=== PATIENT | male | born 1955 | race Caucasian/White ===

== ENCOUNTER 2016-10-06 07:23 | Day surgery (SDC) | payer BC ==
[~2016-10-06] VITALS: Ht 180.3 cm; Wt 92.9 kg
[2016-10-06] VITALS (17 sets, daily range): BP systolic 130–179; BP diastolic 64–93; PULSE 59–69; RESP 10–17; TEMP 97.1–98.6; O2SAT 94–99; Ht 180.3 cm; Wt 92.9 kg
[~2016-10-06 07:23] MED LIST: CITA20TA17 PO; LIDOCAINE 1% (10mg/ml) 2ml SDV INJ ONE; LIDOCAINE 1%/EPI 1:100,000 20ml MDV ONE; LR 1,000 ML IV SCH; NEBI5TAB8 PO
--- OUTSIDE RECORDS SUMMARY | 2016-10-06 07:28 | XMS REPORT | Continuity of Care Document ---
Author Author Imani ÁLVAREZ, Eitan AGGARWAL W Organization Ambulatory Address [address] [place] [address] [place] [address] Phone Care Team Providers Care Ranger Aide Name Role Phone Eitan Diallo PP Unavailable Payers Payer name Insurance type Covered republican ID Authorization(s) Unknown Problems Condition Effective Dates (start - stop) Clinical Status Conjunctival hemorrhage - *Acute Chronic lymphoid leukemia - *Chronic Hypertension, Benign - *Chronic Depression - *Chronic Conjunctivitis - *Acute 486 - PNEUMONIA, ORGANISM NOS - Abnormal blood chemistry - *Controlled Chronic lymphoid leukemia - *Controlled Sinusitis, Acute - Acute Hypertension, Benign - *Controlled OTHER ABNORMAL GLUCOSE - *Controlled Herpes zoster without mention of complication - *Controlled Family History Family Member Diagnosis Age At Onset Status Mother (Unknown) Alive and well (Unknown) Father (Unknown) Cancer -leukemia Yes Mother (Unknown) Hypertension Yes Social History Social History Element Description Quantity Unknown Allergies, Adverse Reactions, Alerts Substance Reaction Severity Status Unknown Medications Medication Instructions Dosage Effective Dates (start - stop) Status atenolol 25 mg tablet take 1 tablet (25MG) by oral route 2 times every day 25 MG - Active Celexa 20 mg tablet Take 1 tablet by mouth every day. - Active atenolol 25 mg tablet Take 1 tablet by mouth every day. - No Longer Active albuterol sulfate HFA 90 mcg/actuation aerosol inhaler Inhale 2 puffs by mouth every 4 to 6 hours as needed. - Active triamcinolone acetonide 0.5 % topical cream Apply twice a day as needed. - Active Immunizations Vaccine Date Status Comments Unknown Results Test Name Date and Time Measure Units Reference Range Abnormal Flag Comments Unknown Vital Signs Date / Time: Height Weight Pulse Rate Blood Pressure Temperature /14:32:00 70.00 in 210.00 lbs 160/100 mm[Hg] 97.4 F Procedures Procedure Date Unknown Encounters Encounter Location Date Patient Visit [facility] Patient Visit Conversion Patient Visit [facility] Advance Directives Directive Effective Date Unknown
--- OUTSIDE RECORDS SUMMARY | 2016-10-06 07:28 | XMS REPORT | Referral Summary ---
Author Organization Unknown Address Unknown Phone Unavailable Care Team Providers Care Parquetry Floor Layer Name Role Phone Saeed Diallo Primary Care Physician [phone] Encounter [facility] [id number] Date(s): 07/04/14 - 07/04/14 [facility] Family [facility] [address] [place] [address] VINNY Guerra [id number] Discharge Diagnosis: Hypertension Discharge Diagnosis: Elevated blood sugar Discharge Diagnosis: Acute leg pain Discharge Diagnosis: Abdominal pain Discharge Diagnosis: Fatigue Discharge Diagnosis: Elevated cholesterol Discharge Diagnosis: Acute URI Discharge Diagnosis: Leukemia Discharge Disposition: Home or Self Care Attending Physician: Eitan Diallo MD Admitting Physician: Eitan Diallo MD Vital Signs Most recent to 1 oldest [Reference Range]: Blood Pressure 150/90 mmHg [90-140/60-90 mmHg] *HI* (07/04/14 9:37 AM) Problem List Condition Effective Dates Status Health Status Informant Elevated Active cholesterol(Confirme d) Hypertension(Confirm 2007 Active ed) Elevated blood Active sugar(Confirmed) Leukemia(Confirmed) 2007 Active Onychomycosis(Confir Active med) Pneumonia(Confirmed) 2011 Active Allergies, Adverse Reactions, Alerts Substance Reaction Severity Status aspirin Adverse Reaction Mild Active Medications albuterol Albuterol sulfate HFA 90 mcg/actuation; inhale 2 puffs by mouth every 4 to 6 hours as needed Special Instructions: Albuterol sulfate HFA 90 mcg/actuation; inhale 2 puffs by mouth every 4 to 6 hours as needed Start Date: 02/14/14 Status: Ordered Bystolic 5 mg oral tablet 1/2 tabs, Oral, Daily, # 30 tabs, 1 Refill(s), Pharmacy: [id number] , 1/2 tabs Oral Daily Start Date: 04/10/14 Status: Ordered CeleXA 20 mg oral tablet 1 tabs, Oral, Daily, # 90 tabs, 0 Refill(s), Pharmacy: [facility], 1 tabs Oral Daily Start Date: 04/23/14 Status: Ordered triamcinolone acetonide 0.5% topical cream; apply twice a day as needed Special Instructions: 0.5% topical cream; apply twice a day as needed Start Date: 02/14/14 Status: Ordered Zithromax Z-Eduard 250 mg oral tablet 1 packets, Oral, Daily, as directed on package labeling, X 5 days, # 6 tabs, 1 Refill(s), Pharmacy: [facility], 1 packets Oral Daily,x5 days,Instr: as directed on package labeling Special Instructions: as directed on package labeling Start Date: 07/04/14 Stop Date: 07/14/14 Status: Ordered Results No data available for this section Immunizations Vaccine Date Refusal Reason pneumococcal 23-polyvalent vaccine 06/08/07 tetanus-diphth toxoids (Td) adult/adol 06/08/07 Procedures Procedure Date Related Diagnosis Body Site Colonoscopy 01/03/12 Hernia repair 1978 Tonsillectomy 1970 History of knee surgery - right Shoulder separation Social History Social History Type Response Smoking Status Former smoker; Type: Cigarettes Assessment and Plan Extracted from: Title: Ambulatory Patient Education Author: Eitan Diallo MD Date: Family Medicine Abdominal Pain Abdominal pain can be caused by many things. Your caregiver decides the seriousness of your pain by an examination and possibly blood tests and X-rays. Many cases can be observed and treated at home. Most abdominal pain is not caused by a disease and will probably improve without treatment. However, in many cases, more time must pass before a clear cause of the pain can be found. Before that point, it may not be known if you need more testing, or if hospitalization or surgery is needed. HOME CARE INSTRUCTIONS Do not take laxatives unless directed by your caregiver. Take pain medicine only as directed by your caregiver. Only take [id number] or prescription medicines for pain, discomfort, or fever as directed by your caregiver. Try a clear liquid diet (broth, tea, or water) for as long as directed by your caregiver. Slowly move to a bland diet as tolerated. SEEK IMMEDIATE MEDICAL CARE IF: The pain does not go away. You have a fever. You keep throwing up (vomiting ). The pain is felt only in portions of the abdomen. Pain in the right side could possibly be appendicitis. In an adult, pain in the left lower portion of the abdomen could be colitis or diverticulitis. You pass bloody or black tarry stools. MAKE SURE YOU: Understand these instructions. Will watch your condition. Will get help right away if you are not doing well or get worse. Document Released: 02/09/2006 Document Revised: 07/24/2012 Document Reviewed: [facility] Patient Information 2014 [place]. No follow up information was provided. Extracted from: Title: Office Visit Note Author: Eitan Diallo MD Date: 07/04/14 Assessment/Plan Abdominal pain No splenomegaly evident on exam to me at this time. Strongly consider CT chest/abd/pelvis. Lab pending. Discomfort really only in the luq for several months. Acute leg pain RLS/right leg pain is very mild and meds are deferred. Consider pain related to CLL, Neuropathy, RLS, etc. Acute URI Zpack. Elevated blood sugar This issue is stable and appropriate refills, lab, and f/ u have been discussed. Lab pending. Elevated cholesterol This issue is stable and appropriate refills, lab, and f/ u have been discussed. Lab pending. Fatigue Lab, cxr, ct recommended. He will schedule when willing. F/U with Dr. Goetz/oncology. Consider radiographer technologist if other issues are stable. Hypertension This issue is stable and appropriate refills, lab, and f/u have been discussed. Leukemia See above.
--- OUTSIDE RECORDS SUMMARY | 2016-10-06 07:28 | XMS REPORT | Referral Summary ---
Author Author [facility] Organization [facility] Address Unknown Phone Unavailable Care Team Providers Care Assistant Professor Of Chemistry Name Role Phone Saeed Diallo Primary Care Physician [phone] Encounter [facility] [id number] Date(s): 12/11/14 - 12/11/14 [facility] [address] [place] [address] [phone] Discharge Diagnosis: CLL (chronic lymphocytic leukemia) Final: Chronic lymphoid leukemia without mention of having achieved remission Final: THROMBOCYTOPENIA, UNSPECIFIED Final: UNSPECIFIED ESSENTIAL HYPERTENSION Final: DERMATOPHYTOSIS OF NAIL Final: Personal History of Tobacco Use Final: Long-Term (Current) Use of Other Medications Discharge Disposition: 01-Home or Self Care Attending Physician: Fran Mock DO Admitting Physician: Fran Mock DO Vital Signs Most recent to 1 oldest [Reference Range]: Temperature Oral 36.7 degC [35.8-37.3 degC] (12/11/14 8:40 AM) Peripheral Pulse 67 bpm Rate [60-100 bpm] (12/11/14 8:40 AM) Heart Rate Monitored 63 bpm [60-100 bpm] (12/11/14 10:20 AM) Respiratory Rate 12 br/min [14-20 br/min] *LOW* (12/11/14 10:20 AM) Blood Pressure 131/84 mmHg [90-140/60-90 mmHg] (12/11/14 10:20 AM) SpO2 97 % (12/11/14 10:20 AM) Problem List Condition Effective Dates Status Health Status Informant Elevated Active cholesterol(Confirme d) Hypertension(Confirm 2008 Active ed) Elevated blood Active sugar(Confirmed) Leukemia(Confirmed) 2007 Active Onychomycosis(Confir Active med) Pneumonia(Confirmed) 2011 Active Allergies, Adverse Reactions, Alerts Substance Reaction Severity Status aspirin Adverse Reaction Mild Active Medications acyclovir 400 mg, Daily, 0 Refill(s) Start Date: 12/11/14 Status: Ordered albuterol Albuterol sulfate HFA 90 mcg/actuation; inhale 2 puffs by mouth every 4 to 6 hours as needed Start Date: 02/14/14 Status: Ordered Bactrim tabs, Oral, BID, 0 Refill(s) Start Date: 12/11/14 Status: Ordered Bystolic 5 mg oral tablet See Instructions, TAKE ONE-HALF TABLET BY MOUTH ONCE DAILY FINAL REFILL. APPOINTMENT NEEDED PRIOR TO ADDITIONAL REFILLS., # 15 tabs, 0 Refill(s), Pharmacy: [facility], TAKE ONE-HALF TABLET BY MOUTH ONCE DAILY; FINAL REFILL. APPOINTMENT... Start Date: 05/05/15 Status: Ordered citalopram 20 mg oral tablet 20 mg 1 tabs, Oral, Daily, APPOINTMENT NEEDED PRIOR TO ADDITIONAL REFILLS., # 30 tabs, 0 Refill(s), Pharmacy: [facility], Needs appt for further refills., 1 tabs Oral Daily,Instr:APPOINTMENT NEEDED PRIOR TO ADDITIONAL REFILLS. Start Date: 05/05/15 Status: Ordered clindamycin 300 mg oral capsule 300 mg 1 caps, Oral, q8hr, # 24 caps, 0 Refill(s), Pharmacy: [facility], 1 caps Oral q8hr Start Date: 01/22/15 Status: Ordered triamcinolone acetonide 0.5% topical cream; apply twice a day as needed Start Date: 02/14/14 Status: Ordered Results No data available for this section Immunizations Vaccine Date Refusal Reason pneumococcal 23-polyvalent vaccine 06/08/07 tetanus-diphth toxoids (Td) adult/adol 06/08/07 Procedures Procedure Date Related Diagnosis Body Site Biopsy Bone Marrow1 12/11/14 Colonoscopy 01/03/12 Hernia repair 1978 Tonsillectomy 1970 History of knee surgery - right Shoulder separation 1auto-populated from documented surgical case Social History Social History Type Response Smoking Status Former smoker; Type: Cigarettes Assessment and Plan No data available for this section
--- OUTSIDE RECORDS SUMMARY | 2016-10-06 07:28 | XMS REPORT | Referral Summary ---
Author Author [facility] Organization [facility] Address Unknown Phone Unavailable Care Team Providers Care Statement Distribution Clerk Name Role Phone Saeed Diallo Primary Care Physician [phone] Encounter Date(s): 01/22/15 - 01/22/15 [facility] [address] [place], [place] [address] Discharge Disposition: 01-Home or Self Care Attending Physician: Jozef Tidwell MD Admitting Physician: Jozef Tidwell MD Referring Physician: Eitan Diallo MD Vital Signs No data available for this section Problem List Condition Effective Dates Status Health [...] REFILLS., # 15 tabs, 0 Refill(s), Pharmacy: [id number], TAKE ONE-HALF TABLET BY MOUTH ONCE DAILY; FINAL REFILL. APPOINTMENT... Start Date: 05/05/15 Status: Ordered citalopram 20 mg oral tablet 20 mg 1 tabs, Oral, Daily, APPOINTMENT NEEDED PRIOR TO ADDITIONAL REFILLS., # 30 tabs, 0 Refill(s), Pharmacy: [facility], Needs appt for further refills., 1 tabs Oral Daily,Instr:APPOINTMENT NEEDED PRIOR TO ADDITIONAL REFILLS. Start Date: 05/05/15 Status: Ordered clindamycin 300 mg oral capsule 300 mg 1 caps, Oral, q8hr, # 24 caps, 0 Refill(s), Pharmacy: [facility], 1 caps Oral q8hr Start Date: 01/22/15 Status: Ordered triamcinolone acetonide 0.5% topical cream; apply twice a day as needed Start Date: 02/14/14 Status: Ordered Results Microbiology Reports TEST: Wound Culture STATUS: Auth (Verified) BODY SITE: Calf SOURCE: Surgical-Wound COLLECTED DATE/TIME: 01/22/15 9:00 AM Wound Culture Skin haritha present, scant amount Immunizations Vaccine Date Refusal Reason pneumococcal 23-polyvalent [...]
--- OUTSIDE RECORDS SUMMARY | 2016-10-06 07:28 | XMS REPORT | Referral Summary ---
Author Author [facility] Organization [facility] Address Unknown Phone Unavailable Care Team Providers Care Plasterer Spot Name Role Phone Saeed Diallo Primary Care Physician [phone] Encounter [facility] [id number] Date(s): 01/08/15 - 01/08/15 [facility] [address] [place], [place] [address] Discharge Diagnosis: Prurigo nodularis Discharge Diagnosis: Basal cell carcinoma of leg Discharge Disposition: 01-Home or Self Care Attending Physician: Felix Pedroza MD Admitting Physician: Felix Pedroza MD Referring Physician: Eitan Diallo MD Vital [...] REFILLS., # 15 tabs, 0 Refill(s), Pharmacy: [facility], TAKE ONE-HALF TABLET BY MOUTH ONCE DAILY; FINAL REFILL. APPOINTMENT... Start Date: 05/05/15 Status: Ordered citalopram 20 mg oral tablet 20 mg 1 tabs, Oral, Daily, APPOINTMENT NEEDED PRIOR TO ADDITIONAL REFILLS., # 30 tabs, 0 Refill(s), Pharmacy: [facility], Needs appt for further refills., 1 tabs Oral Daily,Instr:APPOINTMENT NEEDED PRIOR TO ADDITIONAL REFILLS. Start Date: 05/05/15 Status: Ordered clindamycin 300 mg oral capsule 300 mg 1 caps, Oral, q8hr, # 24 caps, 0 Refill(s), Pharmacy: [facility], 1 caps Oral q8hr Start Date: 01/22/15 Status: Ordered triamcinolone acetonide 0.5% topical cream; apply twice a day as needed Start Date: 02/14/14 Status: Ordered Results No data available for this section Immunizations Vaccine Date Refusal Reason pneumococcal 23-polyvalent vaccine 06/08/07 tetanus-diphth toxoids (Td) adult/adol 06/08/07 Procedures Procedure Date Related Diagnosis Body Site Destruction (eg, laser surgery, 01/08/15 electrosurgery, cryosurgery, chemosurgery, surgical curettement), of benign lesions other than skin tags or cutaneous vascular proliferative lesions; up to 14 lesions.. Excision, malignant lesion including margins, 01/08/15 trunk, arms, or legs; excised diameter 2.1 to 3.0 cm Repair, intermediate, wounds of scalp, 01/08/15 axillae, trunk and/or extremities (excluding hands and feet); 2.6 cm to 7.5 cm.. Biopsy Bone Marrow1 12/11/14 Colonoscopy 01/03/12 Hernia repair 1978 Tonsillectomy 1970 History of knee surgery - right Shoulder separation 1auto-populated from documented surgical case Social History Social History Type Response Smoking Status Former smoker; Type: Cigarettes Assessment and Plan Extracted from: Title: Office Visit Note Author: Felix Pedroza MD Date: 01/08/15 Assessment/Plan 1.Basal cell carcinoma of leg I excised the 1.7 x 1.5 cm site on the right calf with 0.4 cm margins for an excised diameter of 2.5 x 2.3 centimeters. I did an intermediate layered closure with buried 4-0 PDS and top 4-0 Prolene with a final wound repair length of 5.9cm. The wound edges would not completely close in center of repair due to high tension but I used guiding sutures to narrow the remaining gap. He will follow-up in 14 days for suture removal or sooner for any problems. He'll follow-up in 6 months for skin exam Options/risks/benefits of the procedure were discussed and explained and consent was obtained. Specifically discussed risks of scarring, abnormal scarring, skin changes such as color or texture changes, recurrence, incomplete removal, bleeding, infection, need for further treatment, and other unexpected risks/outcomes of these types of skin procedures. Final timeout performed. Site(s) for excision were prepared by cleaning and injecting each site with < 5cc of buffered lidocaine with epi 1:100,000. Site was excised with margins with scalpel/scissors/forceps in usual fashion to the level of the subcutaneous fat. Wound edges were undermined. Hemostasis was obtained with hyfrecation as needed. Layered closure was performed with buried absorbable dermal sutures and top nonabsorbable sutures. Ointment and bandages placed where needed. Wound care instructions given. Ordered: Exc Mal Les Trunk Arm Leg 2.1-3.0cm 34542 Intermediate Repair Wounds; Scalp Trunk Extremities 2.6-7.5cm [id number] Addendum during patient visit, he asked if I could treat a couple of rough lesions on right dorsal by hand and right arm. there were lichenified prurigo nodules at these sites and I froze Rockers, each with LN2 for 7 seconds. we can re-eval at his f/u apt Felix Sweet MD on January 08, 2015 09:11:41 CDT
--- OUTSIDE RECORDS SUMMARY | 2016-10-06 07:28 | XMS REPORT | Referral Summary ---
Author Author [facility] Organization [facility] Address Unknown Phone Unavailable Care Team Providers Care Loin Trimmer Name Role Phone RoselinematildeSaeed Primary Care Physician [phone] Encounter [facility] [id number] Date(s): 12/20/14 - 12/20/14 [facility] [address] [place], [place] [address] Discharge Diagnosis: Adan angioma Discharge Diagnosis: AK (actinic keratosis) Discharge Diagnosis: Multiple nevi Discharge Diagnosis: Neoplasm of uncertain behavior Discharge Diagnosis: Diffuse photodamage of skin Discharge Disposition: 01-Home or Self Care Attending Physician: Felix Pedroza MD Admitting Physician: Felix Pedroza MD Vital Signs No data available for [...] REFILLS., # 15 tabs, 0 Refill(s), Pharmacy: [facility], TAKE ONE-HALF TABLET BY MOUTH ONCE DAILY; FINAL REFILL. APPOINTMENT... Start Date: 05/05/15 Status: Ordered citalopram 20 mg oral tablet 20 mg 1 tabs, Oral, Daily, APPOINTMENT NEEDED PRIOR TO ADDITIONAL REFILLS., # 30 tabs, 0 Refill(s), Pharmacy: [facility], Needs appt for further refills., 1 tabs Oral Daily,Instr:APPOINTMENT NEEDED PRIOR TO ADDITIONAL REFILLS. Start Date: 05/05/15 Status: Ordered clindamycin 300 mg oral capsule 300 mg 1 caps, Oral, q8hr, # 24 caps, 0 Refill(s), [facility], 1 caps Oral q8hr Start Date: 01/22/15 Status: Ordered triamcinolone acetonide 0.5% topical cream; apply twice a day as needed Start Date: 02/14/14 Status: Ordered Results No data available for this section Immunizations Vaccine Date Refusal Reason pneumococcal 23-polyvalent vaccine 06/08/07 tetanus-diphth toxoids (Td) adult/adol 06/08/07 Procedures Procedure Date Related Diagnosis Body Site Biopsy of skin, subcutaneous tissue and/or 12/20/14 mucous membrane (including simple closure), unless otherwise listed; each separate/additional lesion (List separately in addition to code for primary procedure) Biopsy of skin, subcutaneous tissue and/or 12/20/14 mucous membrane (including simple closure), unless otherwise listed; single lesion Destruction (eg, laser surgery, 12/20/14 electrosurgery, cryosurgery, chemosurgery, surgical curettement), premalignant lesions (eg, actinic keratoses); first lesion Destruction (eg, laser surgery, 12/20/14 electrosurgery, cryosurgery, chemosurgery, surgical curettement), premalignant lesions (eg, actinic keratoses); second through 14 lesions, each (List separately in addition to code for first lesion).. Biopsy Bone Marrow1 12/11/14 Colonoscopy 01/03/12 Hernia repair 1978 Tonsillectomy 1970 History of knee surgery - right Shoulder separation 1auto-populated from documented surgical case Social History Social History Type Response Smoking Status Former smoker; Type: Cigarettes Assessment and Plan Extracted from: Title: Office Visit Note Author: Felix Pedroza MD Date: 12/20/14 Assessment/Plan 1.Neoplasm of uncertain behavior Shave biopsy of the right calf and right posterior neck to rule out nonmelanoma skin cancer versus yoker's nodule on the right neck. I can excise the sites if needed Options/risks/benefits of the procedure were discussed and explained and consent was obtained. Specifically discussed risks of scarring, abnormal scarring, skin changes such as color or texture changes, recurrence, bleeding, infection, need for further treatment, and other unexpected risks/outcomes of these types of skin procedures. Final timeout performed. Site(s) for biopsy were prepared by cleaning and injecting each site with <1cc of buffered lidocaine with epi 1:100,000. Site(s) were removed with shave blade in usual fashion. Hemostasis was obtained with drysol and/or hyfrecation as needed. Ointment and bandages placed where needed. Wound care instructions given Ordered: Biopsy Of Skin, Each Add'L Lesion 58434 Biopsy Of Skin, Single Lesion 23026 Office Visit Level 3 2.AK (actinic keratosis) I froze 5 AK's today with liquid nitrogen on the face and dorsal upper extremities. Patient will continue sun protection and recommend follow-up in 6 months Discussed diagnosis and prognosis and treatment of actinic keratoses. Patient elected for cryotherapy. Discussed options/risks/benefits of the procedure. Specifically discussed risks of scarring, abnormal scarring, skin changes such as color or texture changes, blistering, recurrence, bleeding, infection, need for further treatment, and other unexpected risks/outcomes of these types of skin procedures. Patient expressed understanding and consented to the procedure(s). I froze [address] for approximately 5-7 seconds each. Wound care instructions given. Discussed/educated patient on sun protection measures, importance of sun protection, and need for self-skin examination. Recommended regular (at least yearly, or sooner if directed in other follow-up instructions) dermatology follow-up examinations due to high- risk of more AK's and risk of skin cancers, and recommend follow-up dermatology examination for any changing or concerning moles, growths, or skin changes of concern. Ordered: Destruction premalignant lesion 1st Destruction premalignant lesion 2-14, Each [id number] Office Visit Level 3 3.Diffuse photodamage of skin Sun protection Ordered: Office Visit Level 3 4.Multiple nevi Reassurance and observation Ordered: Office Visit Level 3 5.Adan angioma Reassurance Ordered: Office Visit Level 3
--- OUTSIDE RECORDS SUMMARY | 2016-10-06 07:28 | XMS REPORT | Continuity of Care Document ---
Author Author [facility] Organization [facility] Address Unknown Phone Unavailable Allergies Active Description Code Type Severity Reaction Onset Reported/Identified Relationship to Patient Clinical Status Yes aspirin Drug Allergy Mild Adverse Reaction 03/21/2012 Yes No Known Food Allergies Food Allergy 03/21/2012 Yes NSAIDS (Non-Steroidal Anti-Inf Drug Allergy Mild Adverse Reaction 03/21/2012 Yes Salicylates Drug Allergy Adverse Reaction 03/21/2012 Yes aspirin NKMA Mild Adverse Reaction 09/12/2013 Yes aspirin NKMA Mild Adverse Reaction 09/12/2013 Medications Problems Date Dx Coded Attending Type Code Diagnosis Diagnosed By 03/13/2012 Jaciel Hernandez MD Final 204.10 CLL W/O REMISSION 03/13/2012 Jaciel Hernandez MD Admitting 204.10 CLL W/O REMISSION 03/21/2012 Jaciel Hernandez MD Final 204.10 CLL W/O REMISSION 03/21/2012 Jaciel Hernandez MD Final 494.0 BRONCHIECT W/O AC EXACER 03/21/2012 Jaciel Hernandez MD 786.2 COUGH 12/12/2014 Fran Mock DO Final 110.1 DERMATOPHYTOSIS OF NAIL 12/12/2014 Fran Mock DO Reason 204.10 Chronic lymphoid 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 Visit Date/Time Discharge Status Pt. Type Provider Facility Loc./Unit Complaint [id number] 03/21/2012 06:55:00 2011 23:59:59 CLS Outpatient Jaciel Hernandez MD [facility] [id number] 03/13/2012 13:10:00 2011 23:59:59 CLS Outpatient Jaciel Hernandez MD [facility]
[2016-10-06 07:55] LABS: HCT - HEMATOCRIT 46.9 % (41-53); HGB - HEMOGLOBIN 16.7 GM/DL (13.5-17.5); MEAN CORPUSCULAR HGB 31.5 UUG (26-34); MEAN CORPUSCULAR HGB CONC(MCHC 35.6 GM/DL (31-37); MEAN CORPUSCULAR VOLUME 88.5 UM3 (80-100); MEAN PLATELET VOLUME 10.3 UM3 (9.4-12.4)
[2016-10-06 08:04] LABS: ANION GAP 11 MEQ/L (5-15); BUN/CREATININE RATIO 21 RATIO (6-26); CALCIUM 9.2 MG/DL (8.4-10.2); CHLORIDE 105 MEQ/L (98-107); CO2 - CARBON DIOXIDE 28 MEQ/L (22-30); CREATININE 0.9 MG/DL (0.8-1.5); GLOMERULAR FILTRATION RATE 86; GLUCOSE 136 MG/DL (75-110); POTASSIUM 4.2 MEQ/L (3.6-5); SODIUM 144 MEQ/L (134-144)
--- NOTE | 2016-10-06 08:28 | ANESPREOP ---
Anesthesia Record Date and Time DATE: 10/06/16 TIME: 08:26 Proposed Surgical Procedure SQUAMOUS CELL CARCINOMA REMOVAL NPO since: mn Allergies: Coded Allergies: aspirin (Verified Allergy, Unknown, 10/06/16) PER DR. GUZMAN'S NOTES Ht/Wt/BMI Height: 5 ' 11.00 " Weight: 92.900 kg BMI: 28.6 kg/m2 Vital Signs Date Time Temp Pulse Resp B/P Pulse Ox O2 Delivery O2 Flow Rate FiO2 10/06/16 07:45 98.6 59 12 143/93 95 Room Air Medications Inpatient Medications Current Medications Medications (Trade) Dose Ordered Sig/Juvenal Start Time Stop Time Status Last Admin Dose Admin Lactated Ringer's (Lactated Ringers) 1,000 ml @ 50 mls/hr Q20H 10/06/16 07:00 Midazolam HCl (Versed) 0.5-3MG IV PUSH EVERY 10 MIN PRN PRN PRN 10/06/16 10:15 Fentanyl (Fentanyl) 25-50MCG IV PUSH PRN NOT... PRN PRN 10/06/16 10:15 Citalopram (Celexa) 20 Mg Tablet, 0.5 TAB PO DAILY, (Reported) Last Taken: on 10/05/162099 Nebivolol HCl (Bystolic) 5 Mg Tablet, 1 TAB PO DAILY, (Reported) Last Taken: on 10/05/162099 Currently on Beta Jenny: Yes Beta Jenny Last Taken: 10/05/20161999 Medical/Surgical History Anesthesia PMH: Reports: *Diabetes (DIET CONTROLLED), *Hypertension, Cancer ( CLL 2007,SKIN), Pneumonia (JUN 2011), Denies: *Angina (CP SEV YRS AGO), *Dyspnea , *IA, Anesthesia Reactions (NO AIRWAY ISSUES), Arthritis, Asthma, Blood Transfusion Reac, CHF, COPD, CVA/Stroke/TIA, Clotting Problems, Deep Vein Thrombosis, Glaucoma, Headaches, Hepatitis, Hiatal Hernia, Malignant Hyperthermia, Reflux, Renal Disease, Rheumatic Fever, Seizures, Sleep Apnea, Thyroid Disease, Tuberculosis Smoking Status: Former smoker Use Chewing Tobacco?: No Second Hand Exposure: No Substance Use Type: does not use Alcohol Intake: rarely Past Surgical History Orthopedic Surgeries: Yes - RT KNEE SCOPE, SEP LT SHOULDER Abdominal Surgeries: Yes - HERNIA Genitourinary Surgeries: Cardiac Surgeries: Yes - HEART CATH 2007 FOR CHEST TIGHTNESS Endocrine Surgeries: Reproductive Surgeries: Neurological Surgeries: Ear Surgeries: Nose Surgeries: Throat Surgeries: Yes - TONSILLECTOMY Other Surgeries: Yes - HEART CATH 2007 FOR CHEST TIGHTNESS, FOUND SWOLLEN LYMPH NODES Anesthesia Adverse Reactions: FOUND none Family Hx of Anesthesia Advers: none Hx of Motion Sickness: No Pertinent Findings Laboratory Tests 10/06/16 07:45 Physical Exam Respiratory: Bilat breath sounds equal, Lungs clear Cardiovascular: FOUND Regular rate, rhythm Airway Assessment Mallampati Score: II TMD: 3 Fingerbreadths Neck Extension: Fair Overall Assessment: May Be Diff Mask Vent. (facial hair) ASA: 2 Plan Anesthesia Plan: TIVA, LMA, MAC Discussion Discussed risks/options/alternatives of anesthesia and questions answered. Patient consents. Nursing pain assessment noted. Attestation Statement Prior to the delivery of any anesthetic medication, I examined the patient, developed the plan, obtained the patient's consent and discussed the risk and benefits of the procedure with the patient/guardian. GINI CLOUD CRNA October 06, 2016 08:28
[2016-10-06 09:01] LABS: EOSINOPHILS # (MANUAL) 0.3 T/MM3 (0-0.5); LYMPHOCYTES # (MANUAL) 25.1 T/MM3 (1-4.8); MONOCYTES # (MANUAL) 0.3 T/MM3 (0-0.8); NEUTROPHILS #(MANUAL)-ABSOLUTE 6.6 T/MM3 (1.8-7.7); REACTIVE LYMPHOCYTES # 0.7 T/MM3 (0-0)
[2016-10-06 09:02] LABS: SMUDGE CELLS 2+
[2016-10-06] MEDS ORDERED: MIDAZOLAM 2mg/2ml INJECTION ONE (09:45)
[2016-10-06] MEDS ORDERED: FENTANYL 100mcg/2ml INJECTION ONE (09:45)
--- NOTE | 2016-10-06 10:04 | NUR ---
MOHS PROCEDURE IN PREOP PATHOLOGIS IN HOUSE. DR TANG MARKED AND INTERVIEWED PT. ANESTHESIA AND COURT ORDERLY INTERVIEWED PT. 1G KEFZOL GIVEN AT [address] TANG'S ORDER. TIME OUT PERFORMED BY Wilber KENT RN AT 0855. 2MG VERSED AND 50 MCG FENTANYL GIVEN BY PREOP NURSE PER DR TANG'S ORDER. DR. TANG PREPPED SCALP WITH 3% CHLOROXYLENOL. 1% LIDOCAINE WITH EPI 1:100,000 WAS INJECTED AT 0859 AND 3CC USED FOR PROCEDURE. CAUTERY UNIT IN ROOM AND SET TO CUT:0 AND COA. CAUTERY PAD PLACED ON RIGHT THIGH. SPECIMEN EXCISED AT 0905 AND SENT FOR FROZEN. SPECIMEN LABELED, LEFT PARIETAL SCALP LESION.
[2016-10-06] MEDS ORDERED: FENTANYL 100mcg/2ml INJECTION IV PRN (10:15)
[2016-10-06] MEDS ORDERED: MIDAZOLAM 5mg/5ml INJECTION IV PRN (10:15)
[2016-10-06] MEDS ORDERED: CEFAZOLIN 1 GRAM INJECTION IV ONE (10:15)
[2016-10-06] MEDS ORDERED: ATROPINE 1mg/10ml Syringe IV PRN (10:30)
[2016-10-06] MEDS ORDERED: HYDROCODONE/APAP 5 mg/325 mg TABLET PO PRN (10:30)
[2016-10-06] MEDS ORDERED: ONDANSETRON 4mg/2ml INJECTION IV PRN (10:30)
[2016-10-06] MEDS ORDERED: ACET1TAB12 PO (10:31)
[2016-10-06] MEDS ORDERED: CEPH-583 PO (10:31)
--- NOTE | 2016-10-06 10:35 | PDPROCED ---
Procedure Note Date 10/06/16 Procedure Name Excision of SCC left parietal scalp with frozen section guidance of margins and local transposition flap closure: Lesion size 1.4 cm, excision 2.4 cm, final defect 2.8 cm Destruction of cutaneous horns right upper arm via electrodesiccation (x2). Procedure Detail Preop dx: SCC left parietal scalp; cutaneous horns right upper arm (x2) Postop dx: Same Anesthesia: MAC Case: Clean EBL: 40 ml Complications: None VERÓNICA TANG MD October 06, 2016 10:28
--- NOTE | 2016-10-06 10:40 | ANESPO ---
Post-Op Note Date 10/06/16 Time: 10:40 Status Pt Participated in Evaluation: Pt participated in person Vital Signs Date Time Temp Pulse Resp B/P Pulse Ox O2 Delivery O2 Flow Rate FiO2 10/06/16 10:30 64 16 146/67 96 Room Air 10/06/16 10:22 97.1 10/06/16 09:40 2.00 Respiratory Function: Airway patent, Regular respirations Cardiovascular Function: Regular pulse Mental Status: Alert/oriented Pain Level Intensity: 0 Hydration: Taking po fluids Complications during Recovery None apparent Follow-Up Instructions Instructions Per Surgeon GINI CLOUD CRNA October 06, 2016 10:40
--- NOTE | 2016-10-06 16:06 | OPNOTEF ---
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 OPERATION Excision of squamous cell carcinoma of left parietal scalp with frozen section guidance of margins and local transposition flap closure. Lesion size was 1.4 cm, excision size was 2.4 cm, final defect was 2.8 cm. SURGEON Stefania Lee M.D. 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 Geovany Tellez. The lesion of his scalp has been present for several months, but it has grown rapidly and become crusted. He denied any bleeding. Shave biopsy was performed on 09/14/2016 revealing an invasive squamous cell carcinoma with positive deep margins. In the interim from the shave biopsy, the lesion had rapidly recurred. The lesions of the right upper arm have been present for several months as well. They have been treated with cryotherapy once prior. He denied any bleeding. The patient does have CLL and takes Tramadol for generalized aches and pains. Dr. Bryce Russ is his oncologist . He does have a history of basal cell carcinoma of his left face and neck as well as his right leg. On exam, he had a 1.4 cm raised and erythematous encrusted lesion without telangiectasia. His right upper lateral arm had a 0.5 and 0.3 cm raised and hyperkeratotic lesions. In detailed discussion with the patient preoperatively, the risks, benefits and alternatives of excision of the squamous cell carcinoma with closure and destruction of the cutaneous horns were reviewed including, but not limited to, bleeding, infection, poor or keloid scarring, residual and/or recurrent disease, possible partial or complete loss of the flap or graft. The patient understood and wished to proceed. DESCRIPTION OF PROCEDURE The patient was marked preoperatively and then, after suitable IV sedation, the scalp was prepped and draped in the usual sterile manner. It was then infiltrated with 1% lidocaine with epinephrine. After a strict wait for hemostasis, the lesion was excised and handed off as a specimen with a tag at the 12 o'clock margin. Subsequent pathologic evaluation revealed squamous cell carcinoma with clear margins. The patient was then brought to the operating room and again prepped and draped in the usual sterile manner. The scalp was infiltrated with 1% lidocaine with epinephrine and then widely undermined. A local transposition flap was then designed, incised, elevated and advanced into the defect. It was closed in one layer using interrupted 3-0 nylon. Of note, hemostasis throughout was obtained using the electrocautery. At this time, the right upper arm was prepped and draped in the usual sterile manner. It was then infiltrated with 1% lidocaine with epinephrine. The lesions were then destroyed using electrodesiccation. The arm lesions were dressed with Band-Aids. The scalp was dressed with benzoin and Steri-Strips as well as a dry sterile dressing. The patient was then brought to the recovery room in stable condition. Estimated blood loss was 40 mL. The case was clean. 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 MTDD
== END 2016-10-06 11:25 | disposition home or self-care (01) ==
LOC: NSC 07:23
PROVIDERS: ATTEND Surgery Plastic and Reconstructive Surgery
DX: C44.42 Squamous cell carcinoma of skin of scalp and neck (principal); L85.8 Other specified epidermal thickening
CPT/HCPCS: 14020; 17110; 36415; 80048; 85025; J0690; J2250; J3010; J7120